=== PATIENT | male | born 1960 ===

== ENCOUNTER 2024-10-13 06:35 | Day surgery (SDC) | payer MEDICARE, OTHER ==
[2024-10-13] MEDS ORDERED: BUPIVACAINE/EPI PF 0.25% 10 ML VIAL IJ ONE (06:50)
[2024-10-13] MEDS ORDERED: HYDROMORPHONE 1 MG/1 ML DISP.SYRIN IV PRN (07:45)
[2024-10-13] MEDS ORDERED: FENTANYL CITRATE 100 MCG/2 ML AMPUL ONE (07:45)
[2024-10-13] MEDS ORDERED: MIDAZOLAM HCL 2 MG/2 ML VIAL ONE (07:46)
[2024-10-13] MEDS ORDERED: PROPOFOL 200 MG/20 ML BOTTLE ONE (08:37)
[2024-10-13 11:40] VITALS: TEMP 97.7
== END 2024-10-13 13:26 | disposition home or self-care (01) ==
LOC: DS 06:35
PROVIDERS: ATTEND Orthopaedic Surgery Sports Medicine
DX: M22.8X2 Other disorders of patella, left knee (principal); I12.9 Hypertensive chronic kidney disease with stage 1 through stage 4 chronic kidney disease, or unspecified chronic kidney disease; E11.22 Type 2 diabetes mellitus with diabetic chronic kidney disease; N18.9 Chronic kidney disease, unspecified; E78.5 Hyperlipidemia, unspecified; M19.90 Unspecified osteoarthritis, unspecified site; F32.9 Major depressive disorder, single episode, unspecified; Z79.84 Long term (current) use of oral hypoglycemic drugs; Z79.899 Other long term (current) drug therapy; Z98.890 Other specified postprocedural states; Z96.652 Presence of left artificial knee joint
CPT/HCPCS: 29873; 82962; J1885; J3490 ×4; J0690; J1100; J2250; J2405; J3010; J7040; A4663